=== PATIENT | male | born 1965 | race Caucasian/White ===

== ENCOUNTER 2018-10-20 15:45 | Emergency (ER) | payer OTHER ==
[~2018-10-20] VITALS: Ht 180.3 cm; Wt 113.4 kg
[2018-10-20 15:45] VITALS: BP 144/89
[2018-10-20] MEDS ORDERED: TETRACAINE HCL/PF 0.5% UD 2 ML BOTTLE ONE (16:28)
[2018-10-20] MEDS ORDERED: FLUORESCEIN SODIUM OPHTH 1 EA STRIP ONE (16:28)
[2018-10-20] MEDS ORDERED: TETRACAINE HCL/PF 0.5% UD 2 ML BOTTLE OP ONE (16:30)
[2018-10-20] MEDS ORDERED: FLUORESCEIN SODIUM OPHTH 1 EA STRIP OP ONE (16:30)
== END 2018-10-20 16:52 | disposition home or self-care (01) ==
LOC: ER 15:49
DX: S05.02XA Injury of conjunctiva and corneal abrasion without foreign body, left eye, initial encounter (principal); W20.8XXA Other cause of strike by thrown, projected or falling object, initial encounter; Y93.9 Activity, unspecified; Y92.89 Other specified places as the place of occurrence of the external cause; Y99.8 Other external cause status
CPT/HCPCS: 99283; A4606; Z7610

== ENCOUNTER 2022-04-16 14:46 | Emergency (ER) | payer OTHER ==
[~2022-04-16] VITALS: Ht 172.7 cm; Wt 113.4 kg
[2022-04-16 15:11] VITALS: BP 135/76
--- NOTE | 2022-04-16 16:54 | NUR ---
Pt wanted to leave- states "feel better" DId NOT want to wait for [facility]. Spoke to son [phone] over the phone and was told he is normal. notified
[2022-04-16] MEDS: PROCHLORPERAZINE EDISYLATE 10 MG/2 ML VIAL IM ONE (17:00)
[2022-04-16] MEDS: SUMATRIPTAN SUCCINATE 6 MG/0.5 ML VIAL SQ ONE (17:01)
[2022-04-16] MEDS: KETOROLAC TROMETHAMINE INJ 30 MG/ML VIAL IM ONE (17:01)
== END 2022-04-16 17:02 | disposition home or self-care (01) ==
LOC: ER 14:46
DX: R51.9 Headache, unspecified (principal)
CPT/HCPCS: 70450; 96372; 99284; J0780

== ENCOUNTER 2023-08-14 18:32 | Emergency (ER) | payer OTHER ==
[~2023-08-14] VITALS: Ht 172.7 cm; Wt 90.7 kg
[2023-08-14] MEDS ORDERED: LIDOCAINE 1%-EPI 1:100,000 50 ML VIAL IJ ONE (20:00)
[2023-08-14] MEDS ORDERED: TDAP [DIPH/PERTUSSIS/TET] 0.5 ML VIAL IM ONE (20:00)
[2023-08-14] MEDS ORDERED: LIDOCAINE 1%-EPI 1:100,000 20 ML VIAL ONE (20:03)
[2023-08-14] MEDS ORDERED: ACET500C4 PO (21:20)
[2023-08-14 21:31] VITALS: BP 134/99; TEMP 98.1; O2SAT 98
== END 2023-08-14 21:32 | disposition home or self-care (01) ==
LOC: ER 18:38
DX: S81.012A Laceration without foreign body, left knee, initial encounter (principal); W04.XXXA Fall while being carried or supported by other persons, initial encounter; Y93.89 Activity, other specified; Y92.89 Other specified places as the place of occurrence of the external cause; Y99.8 Other external cause status
CPT/HCPCS: 99282; 12002; J3490 ×2